=== PATIENT | female | born 1980 | race Caucasian/White ===

== ENCOUNTER 2018-02-23 03:52 | Emergency (ER) | payer OTHER ==
[~2018-02-23] VITALS: Ht 160 cm; Wt 83.9 kg
[~2018-02-23 03:52] MED LIST: AMOXICILLIN500 M3 PO; AUGMENTIN 875-1 EACH PO; BACTRIM DS TAB1 EACH PO
[2018-02-23 03:59] VITALS: BP 132/73
--- NOTE | 2018-02-23 04:03 | ED GENERAL ADULT ---
History of Present Illness General Chief Complaint: Skin Rash/ Abcess Stated Complaint: "ABSCESS ON BUTT" PER PT Source: patient Exam Limitations: no limitations Vital Signs & Intake/Output Vital Signs & Intake/Output Vital Signs Date Time Temp Pulse Resp B/P B/P Pulse O2 O2 Flow FiO2 Mean Ox Delivery Rate 02/23 0359 98.8 97 18 132/73 99 Room Air Allergies Coded Allergies: No Known Allergies (08/26/17) Reconcile Medications Amoxicillin/Potassium Clav (Augmentin 875-125 Tablet) 875 MG-125 MG TABLET 1 TAB PO BID abscess Triage Note: PT FROM HOME WITH C/O ABSCESS ON ANUS. STATES SHE SAW PCP YESTERDAY WHO STARTED PT ON BACTRIM DS AND SENT HER TO ER "SHE SAID SHE COULDN'T DRAIN IT BECAUSE OF WHERE IT IS". REPORTS PAIN 03/18 Triage Nurses Notes Reviewed? yes Onset: Abrupt Duration: day(s): Timing: recent history Injury Environment: home Severity: mild Modifying Factors: Worsens With: movement. Associated Symptoms: swelling and tenderness : No Patient currently breastfeeds: No HPI: 37 yo woman presents with swelling, redness, and tenderness in her left buttock. She was started on bactrim yesterday by her PMD and was referred here if her symptoms worsened. She notes no drainage, fever, diarrhea. She is otherwise well. Past History Travel History Traveled to [place] past 21 day No Medical History Any Pertinent Medical History? 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 No Review of Systems Review of Systems Constitutional: Reports: no symptoms. EENTM: Reports: no symptoms. Respiratory: Reports: no symptoms. Cardiovascular: Reports: no symptoms. GI: Reports: no symptoms. Genitourinary: Reports: no symptoms. Musculoskeletal: Reports: no symptoms. Skin: Reports: no symptoms. Neurological/Psychological: Reports: no symptoms. Hematologic/Endocrine: Reports: no symptoms. Immunologic/Allergic: Reports: no symptoms. All Other Systems: Reviewed and Negative Physical Exam Physical Exam General Appearance: well developed/nourished, no apparent distress Head: atraumatic, normal appearance Eyes: Bilateral: normal appearance. Rectal: 6cm area of induration, punctate area of purulent drainage. Extremities: normal inspection Core Measures ACS in differential dx? No CVA/TIA Diagnosis: No Sepsis Present: No Sepsis Focused Exam Completed? No Progress Differential Diagnoses I considered the following diagnoses in my evaluation of the patient: abscess vs cellulitis Plan of Care: Current Medications Sig/Diana Start time Last Medication Dose Stop Time Status Admin Lidocaine 20 ML ONCE ONE 02/23 430 UNVr (Lidocaine 1%) 02/23 431 Initial ED EKG: none Departure Departure Disposition: HOME OR SELF CARE Condition: Stable Clinical Impression Primary Impression: Abscess Referrals: Patient Has No Primary Care Dr (PCP/Family) Departure Forms: Customer Survey General Discharge Information Procedures Incision and Drainage Site: RIGHT BUTTOCK Blade Size: 11 I & D Procedure: Yes: betadine prep, sterile drapes applied, sterile dressing applied, wick placed. Progress: SIMPLE ABSCESS.... APPROX 4CC OF PURULENCE DRAINED.... EXCELLENT HEMOSTASIS. Critical Care Note Critical Care Note Critical Care Time: non-applicable
== END 2018-02-23 04:54 ==
LOC: ERH 03:52
DX: L02.31 Cutaneous abscess of buttock (principal)

== ENCOUNTER 2018-02-25 04:05 | Emergency (ER) | payer OTHER ==
[~2018-02-25] VITALS: Ht 160 cm; Wt 83.9 kg
[2018-02-25 04:18] VITALS: BP 114/77
--- NOTE | 2018-02-25 04:31 | ED ANIMAL BITE/WOUND CHECK ---
History of Present Illness General Chief Complaint: Suture Removal/Wound Recheck Stated Complaint: WOUND CHECK Source: patient, old records Exam Limitations: no limitations Vital Signs & Intake/Output Vital Signs & Intake/Output Vital Signs Date Time Temp Pulse Resp B/P B/P Pulse O2 O2 Flow FiO2 Mean Ox Delivery Rate 02/25 0418 97.6 97 18 114/77 97 Room Air Allergies Coded Allergies: No Known Allergies (08/26/17) Reconcile Medications Amoxicillin/Potassium Clav (Augmentin 875-125 Tablet) 875 MG-125 MG TABLET 1 TAB PO BID abscess Triage Note: PT FROM HOME FOR WOUND CHECK, WAS HERE FOR I&D OF ABCESS ON R BUTTOCK ON 02/23. HAS BEEN TAKING MOTRIN FOR PAIN Triage Nurses Notes Reviewed? yes : No Patient currently breastfeeds: No HPI: Patient presents for a recheck after an abscess IND. Packing was placed. Patient has no chronic complaints. There is no pain. There is no fevers or chills. Past History Travel History Traveled to [place] past 21 day No Medical History Any Pertinent Medical History? 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 No Review of Systems Review of Systems Constitutional: Reports: no symptoms. Respiratory: Reports: no symptoms. Cardiovascular: Reports: no symptoms. GI: Reports: no symptoms. Musculoskeletal: Reports: no symptoms. Neurological/Psychological: Reports: no symptoms. Immunologic/Allergic: Reports: no symptoms. Physical Exam Physical Exam General Appearance: well developed/nourished, alert, awake Eyes: Bilateral: PERRL, EOMI. Rectal: ABSCESS: NO SIGNS OF INFLAMMATION, STILL SLIGHT DRAINAGE, BLUNT DISSECTION USED TO OPEN 1 WALL, GOOD DRAINAGE, NO OVERLYING CELLULITIS, ABSCESS FEELING WELL. 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
== END 2018-02-25 04:33 ==
LOC: ERH 04:05
DX: Z48.00 Encounter for change or removal of nonsurgical wound dressing (principal)